=== PATIENT | male | born 1995 | race African-American/Black ===

== ENCOUNTER 2018-05-30 21:28 | Emergency (ER) | payer OTHER ==
--- NOTE | 2018-05-30 21:41 | EDM.PDOC ---
ED HPI GENERAL MEDICAL PROBLEM - General Chief Complaint: Trauma Stated Complaint: concussion Time Seen by Provider: 05/30/18 21:28 Source of Information: Reports: Patient, EMS, Other (coaches) History Limitations: Reports: Altered Mental Status - History of Present Illness INITIAL COMMENTS - FREE TEXT/NARRATIVE: Patient has brought into the emergency department by EMS after sustaining a hard hit in a football game. Patient was hit while trying to run with football. He was knocked down but got up right away and was assisted off the field on his own behalf. He was talking to coaches when the injury happened. Approximately 2 hours prior to arrival to ER. Patient was assessed by trainers and was able to Seema Justin was taken out again. After the game and they loaded the bus it was noted when he was on the bus that he was not responding to questions appropriately. The removed him from the bus and called 911. During that timeframe they state that he was not coherent answering questions for a few seconds. Then he would start talking and making sense. This went on for approximately 4-5 minutes. EMS stated the patient is aware of his name who he has was having difficulty answering other questions. She denies any headache, dizziness, loss of consciousness, neck pain, back pain, numbness, or tingling in lower extremities/upper extremity. He denies loosing any bowel content when injury occurred. - Related Data Allergies Allergy/AdvReac Type Severity Reaction Status Date / Time No Known Allergies Allergy Verified 05/30/18 21:37 Home Meds: Home Meds . [No Known Home Meds] 05/30/18 [History] Review of Systems - Review of Systems Review Of Systems: See Below Constitutional: Reports: No Symptoms Eyes: Reports: No Symptoms Ears: Reports: No Symptoms Nose: Reports: No Symptoms Mouth/Throat: Reports: No Symptoms Respiratory: Reports: No Symptoms Cardiovascular: Reports: No Symptoms GI/Abdominal: Reports: No Symptoms Genitourinary: Reports: No Symptoms Musculoskeletal: Reports: No Symptoms Skin: Reports: No Symptoms Neurological: Reports: No Symptoms Psychiatric: Reports: No Symptoms ED EXAM, GENERAL - Physical Exam Exam: See Below Exam Limited By: No Limitations General Appearance: Alert, WD/WN, No Apparent Distress Eye Exam: Bilateral Eye: EOMI, PERRL Neck: Normal Inspection, Supple, Non-Tender, Full Range of Motion Respiratory/Chest: No Respiratory Distress, Lungs Clear, Normal Breath Sounds, No Accessory Muscle Use, Chest Non-Tender Cardiovascular: Normal Peripheral Pulses, No Edema, No Murmur Peripheral Pulses: 3+: Radial (L), Radial (R), Dorsalis Pedis (L), Dorsalis Pedis (R) GI/Abdominal: Normal Bowel Sounds, Soft, Non-Tender, No Distention, No Abnormal Bruit Back Exam: Normal Inspection, Full Range of Motion Extremities: Normal Inspection, Normal Range of Motion, Non-Tender, No Pedal Edema, Normal Capillary Refill Neurological: Alert, Oriented Psychiatric: Normal Affect, Normal Mood Skin Exam: Warm, Dry, Intact, Normal Color Course - Vital Signs Last Recorded V/S: Last Vital Signs Temp 37.4 C 05/30/18 21:30 Pulse 91 05/30/18 21:30 Resp 18 05/30/18 21:30 BP 142/83 H 05/30/18 21:30 Pulse Ox 98 05/30/18 21:30 - Orders/Labs/Meds Orders: Active Orders 24 hr Category Date Time Status Cervical Spine wo Cont [CT] Stat Exams 05/30/18 21:30 Taken Head wo Cont [CT] Stat Exams 05/30/18 21:30 Taken Labs: Laboratory Tests 05/30/18 05/30/18 Range/Units 22:09 22:09 WBC 12.6 H (4.0-10.0) x10^3/uL RBC 4.93 (4.5-6.0) x10^6/uL Hgb 15.5 (14.0-18.0) g/dL Hct 43.6 (40.0-52.0) % MCV 88.4 (78.0-93.0) fL MCH 31.4 (26.0-32.0) pg MCHC 35.6 (32.0-36.0) g/dL RDW Coeff of [place] 12.9 (10.0-15.0) % Plt Count 294 (130-400) x10^3/uL Neut % (Auto) 79.5 (50.0-80.0) % Lymph % (Auto) 14.6 L (25.0-50.0) % [place] % (Auto) 5.6 (2.0-11.0) % Eos % (Auto) 0.1 (0.0-4.0) % Baso % (Auto) 0.2 (0.2-1.2) % Sodium 143 (136-145) mmol/L Potassium 3.6 (3.5-5.1) mmol/L Chloride 105 (98-107) mmol/L Carbon Dioxide 25 (21-32) mmol/L Anion Gap 16.6 (10-20) mmol/L BUN 10 (7-18) mg/dL Creatinine 1.2 (0.70-1.30) mg/dL Est Cr Clr Drug Dosing 86.73 mL/min Estimated GFR (MDRD) > 60 Glucose 105 (74-106) mg/dL Calcium 9.4 (8.5-10.1) mg/dL Corrected Calcium 9.08 (8.5-10.1) mg/dL Total Bilirubin 0.5 (0.2-1.0) mg/dL AST 36 (15-37) U/L ALT 44 (16-63) U/L Alkaline Phosphatase 56 (46-116) U/L Creatine Kinase 863 H* (39-308) U/L Total Protein 8.1 (6.4-8.2) g/dL Albumin 4.4 (3.4-5.0) g/dL Globulin 3.7 Albumin/Globulin Ratio 1.19 Departure - Departure Time of Disposition: 22:15 (awaiting on flight ) Disposition: DC/Tfer to Acute Hospital 02 Condition: Good Clinical Impression: Concussion with brief (less than one hour) loss of consciousness, Episode of unresponsiveness - Discharge Information *PRESCRIPTION DRUG MONITORING PROGRAM REVIEWED*: Not Applicable *COPY OF PRESCRIPTION DRUG MONITORING REPORT IN PATIENT YANG: Not Applicable Referrals: PCP,Not In Area [Primary Care Provider] - Forms: ED Department Discharge, Interfacility Transfer EMTALA - My Orders Last 24 Hours: My Active Orders 05/30/18 21:30 Cervical Spine wo Cont [CT] Stat Head wo Cont [CT] Stat - Assessment/Plan Last 24 Hours: My Active Orders 05/30/18 21:30 Cervical Spine wo Cont [CT] Stat Head wo Cont [CT] Stat Assessment:: 1. concussion 2. disorientation Plan: 1. CT of head and neck. Results reviewed with the pt and with mother on the phone. 2. C-collar in place on neck for precaution 3. Prior to pt being placed on the CT scan board he became unresponsive for approx 2 mins. He became responsive again and was asking what is going on. Within a few more seconds he was able to respond to his name, place, and recognized the head men's tennis coach who was with him. Pt did not respond to stimuli during unresponsive episode. 4. 2 Liters normal saline given to pt 5. Life flight initiated as soon as instability/unresponsive episode prior to CT scan. CT scan was completed for pt was alert and talking and facility was awaiting on life flight team. 6. Pt did not have any further unresponsive episode during ER stay. 7. CT- Cervical spine negative and head CT negative 8. Critical value of CK 863 given via lab. 9. Mother was contacted regarding update just prior to pt leaving. She stated he did have an unresponsive episode a year ago and did not have any further workup. 10. [facility] was contacted just prior to leaving via flight with update including critical lab value and mother's information.
[2018-05-30 22:46] LABS: CHLORIDE,CL 105 mmol/L (98-107); SODIUM,NA 143 mmol/L (136-145)
[2018-05-30 22:47] LABS: ANION GAP 16.6 mmol/L (10-20)
== END 2018-05-30 23:04 | disposition short-term general hospital (02) ==
LOC: VM.ED 21:28
DX: S06.0X9A Concussion with loss of consciousness of unspecified duration, initial encounter (principal); W22.8XXA Striking against or struck by other objects, initial encounter; Y93.61 Activity, american tackle football
CPT/HCPCS: 70450; 72125; 80053; 82550; 85025; 96365; 99285